=== PATIENT | male | born 1960 | race Caucasian/White ===

== ENCOUNTER 2022-03-07 07:10 | Inpatient (IN) | payer OTHER, SELFPAY ==
[2022-03-07] VITALS (25 sets, daily range): BP systolic 100–152; BP diastolic 64–94; PULSE 48–68; RESP 10–17; TEMP 36.4–36.5; O2SAT 97–100; BMI 24.6
--- NOTE | 2022-03-07 | ECHO_ITS ---
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 Strain analysis performed. Summary 1. Left ventricular chamber dimension is normal. 2. Left ventricular systolic function is mildly reduced, estimated at 40-45%. 3. The inferoposterior segment is severely hypodynamic. 4. Definity contrast used to improve visualization. 5. There is trace mitral valve regurgitation. Left Ventricle Left ventricular chamber dimension is normal. Left ventricular systolic function is mildly reduced, estimated at 40-45%. The left ventricular diastolic function is grade I diastolic dysfunction. Definity contrast used to improve visualization. The inferoposterior segment is severely hypodynamic. Right Ventricle Right ventricular chamber dimension is mildly enlarged. Left Atria Left atrial chamber dimension is normal. Right Atria Right atrial chamber dimension is normal. Aortic Valve The aortic valve is normal. Pulmonic Valve The pulmonic valve is normal. Mitral Valve The mitral valve has normal leaflets. There is trace mitral valve regurgitation. Tricuspid Valve The tricuspid valve leaflets are normal. Pericardium/Pleural The pericardium appears normal. Aorta The aortic root size at the sinus of Valsalva is normal. Left Ventricular Outflow Tract Name Value Normal LVOT Doppler LVOT Peak Gradient 1 mmHg LVOT Mean Gradient 0 mmHg LVOT VTI 10.40 cm LVOT VTI/AV VTI Ratio 0.70 Mitral Valve Name Value Normal MV Doppler MV Decel [place] 234.15 cm/s2 MV PHT 0 s MV Area (PHT) 3.24 cm2 4.00-5.00 MV Diastolic Function MV E Peak Velocity 54.88 cm/s MV A Peak Velocity 62.13 cm/s MV E/A 0.88 MV Decel Time 0 s MV Annular TDI MV E/e' (Septal) 8.69 <=8.00 MV E/e' (Lateral) 5
--- NOTE | 2022-03-07 07:11 | ECG_ITS ---
Measurements Intervals [place] Rate: 56 P: 1 [place]: 158 QRS: 66 QRSD: 89 T: 104 QT: 394 QTc: 382 Interpretive Statements SINUS BRADYCARDIA MARKED ST ELEVATION, CONSIDER INFERIOR INJURY [MARKED ST ELEVATION W/O NORMALLY INFLECTED T WAVE IN II/aVF] ACUTE INFERIOR NE ABNORMAL ECG NO PREVIOUS ECG AVAILABLE FOR COMPARISON Electronically Signed On 03-07-2022 14:08:25 CDT by Erasto Wyatt M.D.
--- NOTE | 2022-03-07 07:14 | ED.CHESTPAIN ---
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 EYES: Denies visual changes, redness, or discharge. ENT: Denies rhinorrhea, congestion, sore throat, or otalgia. CARDIOVASCULAR: has chest pain, no palpitations, or edema. RESPIRATORY: Denies cough but has dyspnea. GASTROINTESTINAL: Denies abdominal pain, nausea, vomiting, or diarrhea. GENITOURINARY: Denies dysuria or hematuria. SKIN: Denies rash or itching. MUSCULOSKELETAL: Denies back pain, joint pain, or myalgia. NEUROLOGIC: Denies headache, numbness, or weakness. PSYCHIATRIC: Denies anxiety or depression. Exam Narrative: APPEARANCE: Well appearing, no pain in distress, well-nourished. Head normocephalic atraumtaic. EYES: PERRLA/EOMI, conjunctivae very clear. NOSE: Normal no drainage EARS:TMS clear Diann Noriega, with good light reflex. THROAT: Pharynx clear, no exudate. NECK: Supple. No adenopathy, no masses. RESPIRATORY: Airway patent, repsirations nonlabored. Clear to auscultation bilaterally, no rales, rhonchi, wheezing. CARDIOVASCULAR: Regular rate and rhythm without murmurs rubs or gallops. ABDOMINAL: Soft, nontender, nondistended, no hepatosplenomegally MUSCULOSKELETAl: Moves all extremities. Strenght/ROM intact, No edema, No calf tenderness. NEURO: Alert. Cranial nerves II through XII intact. Good gait. Good coordination SKIN:: Warm, dry. Normal Color PSYCHIATRIC: Normal affect/mood, normal interaction with parents. Course Reevaluation(s) Reevaluation #1: let dr Roldan know again pt here and updated vitals history and exam and repeat ekg at 0724 Vital Signs Vital signs: Vital Signs Pulse Rate 59 L 03/07/22 07:09 Respiratory Rate 12 03/07/22 07:09 Blood Pressure 152/94 H 03/07/22 07:09 Pulse Oximetry 98 03/07/22 07:09 Oxygen Delivery Room Air 03/07/22 07:09 Pulse Rate 59 L 03/07/22 07:09 Respiratory Rate 12 03/07/22 07:09 Blood Pressure 152/94 H 03/07/22 07:09 Pulse Oximetry 98 03/07/22 07:09 Oxygen Delivery Room Air 03/07/22 07:09 MDM - Chest Pain Lab Data Result diagrams: 03/07/22 07:20 03/07/22 07:20 Labs: Lab Results 03/07/22 03/07/22 03/07/22 Range/Units 07:20 07:20 07:20 WBC Pending RBC Pending Hgb Pending Hct Pending MCV Pending MCH Pending MCHC Pending RDW Pending Plt Count Pending MPV Pending Immature Gran % (Auto) Pending Neut % (Auto) Pending Lymph % (Auto) Pending Pepin % (Auto) Pending Eos % (Auto) Pending Baso % (Auto) Pending Lymph # (Auto) Pending Pepin # (Auto) Pending Eos # (Auto) Pending Baso # (Auto) Pending Abs Immat Gran (auto) Pending Absolute Neuts (auto) Pending Absolute Nucleated RBC Pending Nucleated RBC % Pending PT Pending INR Pending APTT Pending Sodium Pending Potassium Pending Chloride Pending Carbon Dioxide Pending Anion Gap Pending BUN Pending Creatinine Pending Estim Creat Clear Calc Pending Estimated GFR Pending Glucose Pending Calcium Pending Total Bilirubin Pending AST Pendin
[2022-03-07] MEDS: ONDANSETRON INJ 4 MG/2 ML VIAL IV PUSH (07:21)
[2022-03-07] MEDS: MORPHINE SULFATE (*CRX) 2 MG/ML INJ IV PUSH (07:21)
[2022-03-07] MEDS: HEPARIN SODIUM 5,000 UNITS/ML VIAL 4000 UNITS IV PUSH (07:22)
[2022-03-07 07:25] LABS: Basophils Absolute Auto 0.1 K/mm3 (0.0-0.1); Basophils Percent Auto 0.8 % (0.2-1.2); Eosinophils Absolute Auto 0.4 K/mm3 (0-0.3); Hematocrit 46.7 % (42.0-52.0); Hemoglobin 15.4 g/dL (14.0-18.0); Immature Granulocyte Absolute 0.03 K/mm3 (0.00-0.031); Immature Granulocyte Percent A 0.3 % (0-0.5); Lymphocytes Absolute Auto 3.41 K/mm3 (0.9-3.2); Lymphocytes Percent Auto 32.6 % (18.3-44.2); Mean Corpuscular Hemoglobin 32.6 pg (26-34); Mean Corpuscular Volume 98.9 fl (80-100); Mean Platelet Volume 10.5 fl (7.4-10.4); Monocytes Absolute Auto 0.8 K/mm3 (0.1-0.6); Monocytes Percent Auto 7.7 % (2.6-8.5); Neutrophils Absolute Auto 5.7 K/mm3 (1.3-6.7); Neutrophils Percent Auto 54.6 % (45.5-73.1); Platelet Count Result 217 k/mm3 (150-375); Red Blood Count 4.72 M/mm3 (4.6-6.20); Red Cell Distribution Width 12.1 % (11.5-14.5); White Blood Count 10.5 K/mm3 (4.5-10.0)
[2022-03-07 07:36] LABS: Alanine Aminotransferase 15 U/L (6-50); Albumin Level 4.2 g/dL (3.5-5.1); Alkaline Phosphatase 104 U/L (38-126); Anion Gap 7 mmol/L (8-16); Aspartate Amino Transferase 26 U/L (17-59); Bilirubin,Total 0.6 mg/dL (0.2-1.3); Blood Urea Nitrogen 13 mg/dL (9-20); Calcium 8.7 mg/dL (8.4-10.2); Carbon Dioxide 27 mmol/L (22-30); Chloride 104 mmol/L (98-107); Cholesterol 278 mg/dL (0-200); Estimated CRCL calculation 83 ml/min; Estimated Glomerular Filt Rate > 60; Glucose 127 mg/dL (65-110); HDL Direct 31 mg/dL; Potassium 4.1 mmol/L (3.4-5.0); Sodium 138 mmol/L (137-145); Triglycerides 214 mg/dL (<150)
[2022-03-07 07:37] LABS: Partial Thromboplastin Time 25.9 SECONDS (22.3-36.8); Prothrombin Time 12.9 Seconds (11.1-14.7)
[2022-03-07 07:47] LABS: LDL Cholesterol Direct 181 mg/dL
[2022-03-07 08:08] LABS: Troponin I 0.071 ng/mL (0.000-0.034)
--- NOTE | 2022-03-07 08:21 | WPDCARDPROC ---
Cardiac Cath Procedure Note Date of procedure:: 03/07/22 Performing physician:: Ham Roldan MD Indication:: inferior wall ST-elevation TX Brief clinical history:: this is a 61-year-old patient without previous history of coronary artery disease. [place] and presents to the hospital by ambulance with chest pain and acute inferior ST-elevation TX Procedure Procedure performed:: emergency coronary angiography emergency PCI(LUIS) to the right coronary artery left ventriculography Sedation/Medication given:: no sedation case start time 7:36 a.m. case end time 8:03 a.m. Access site:: right femoral artery Estimated blood loss:: he 25 cc Procedure note:: patient was brought to the cardiac catheterization lab in the emergency setting. The right and left femoral triangles were prepared and draped in normal fashion. Anesthesia was given in the right groin with 1% lidocaine. Using the modified Seldinger right femoral artery was punctured and a 6 [place] vascular sheath was placed. After this I used a 6 [place] JR4 guiding catheter to engage and inject the right coronary artery. Following this PCI of right coronary artery was carried out as detailed below. Prior to PCI the patient was anticoagulated with a bolus and infusion of Angiomax. He also received 180 mg of oral Brilinta prior to intervention. He had received aspirin in the emergency department and as well as 4000 units of heparin. Following right coronary PCI used a 5 [place] FL4 to engage and inject the left coronary artery in multiple projections. After this a 5 [place] angled pigtail catheter was used to measure left-sided hemodynamics and to inject LV g in the our AO projection. Following this the case was terminated the sheath was sutured into position the patient was taken to the ICU for post TX/PCI recovery. 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 Findings:: Hemodynamics: Central aortic pressure is 138/78 left ventricle 138/6 end-diastolic 18 there was no gradient on pullback across the aortic valve. Left ventricle: The infero posterior segment is akinetic the remainder of the ventricle contracts well. The global ejection fraction is in 50% by visual estimation the left main coronary artery is nicely patent the left anterior descending is a moderate caliber artery extending down to the apex. The LAD has mild atherosclerotic luminal irregularities proximally there is no significant disease in the LAD. Circumflex is a medium caliber vessel giving rise to 1 significant marginal branch and another very small marginal. The circumflex system is smooth and angiographically normal. The right coronary artery is large caliber and dominant to the posterior circulation is 100% occluded proximally. Appearance is typical of an acute thrombotic occlusion. Intervention: The right coronary artery was wired using a 0.014 BMW coronary guidewire. Traversing the occlusion with the wire restore MJ 1 flow in the vessel. Following this the lesion was pre-dilated with a 2.5 x 20 mm PTCA balloon and then stented with a 3.5 x 26 mm [employer] drug-eluting stent with an excellent anatomical result. There was MJ 3 flow in the vessel following the procedure and no disruption dissection or distal embolization. Conclusion:: 1. Acute inferior wall ST-elevation TX with 100% occlusion of the right coronary proximally. 2. No significant left coronary disease 3. successful revascularization as detailed above 4. infero posterior akinesia global ejection fraction approximately 50% Ham Roldan MD [facility]
--- NOTE | 2022-03-07 08:22 | ADMGEN ---
This patient, Jose Trujillo, was admitted to Intensive Care Unit-7 at 0822. Patient/family oriented to hospital policies and general routines including ID bracelet, bed and alarms, visiting hours, pain management, procedures, bathroom and other care routines, personal items, smoking policy, room service/diet, and visiting hours. Information on how to activate the Rapid Response Team has been discussed. Patient/Family are encouraged to report perceived risks to care and to ask questions if they do not understand what they are told or what they should do.
--- NOTE | 2022-03-07 08:38 | PM.IMHP ---
H&P: HPI History of Present Illness Date/Time: 03/07/22 08:38 Chief Complaint: chest pain Narrative: this is a 61-year-old man without previous knowledge of coronary artery disease or really significant medical problems. 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 patient is being seen briefly as he is being prepared for emergency angiography in the cardiac catheterization lab. Denies any history of hypertension diabetes or dyslipidemia. Patient states that he just lost his brother within the last couple of weeks of myocardial infarction. Review of Systems Review of Systems: ROS unobtainable: Yes unobtainable due to medical condition Meds Home Medications and Allergies Home Medications Medication Instructions Recorded Confirmed Type No Home Medications 03/07/22 03/07/22 History Allergies Allergy/AdvReac Type Severity Reaction Status Date / Time No Known Allergies Allergy Verified 03/07/22 08:40 Vital Signs Vital Signs - 24 hr 03/07/22 07:09 Pulse Rate 59 L Respiratory Rate 12 Blood Pressure 152/94 H Pulse Oximetry 98 Oxygen Delivery Room Air Exam Const: General: uncomfortable Other: Well-developed well-nourished 61-year-old gentleman remarkably calm given the circumstances HENMT: Mouth: Yes moist mucous membranes Eyes: Sclera: sclerae normal Neck: Neck: supple and no JVD Other: carotid pulses intact bilaterally Resp: Effort & Inspection: normal respiratory effort Auscultation: clear to auscultation bilaterally Cardio: Rate: regular rate and bradycardic Rhythm: regular rhythm Other: no murmur no gallop GI: GI Palp: Yes Soft to palpation Auscultation: normal bowel sounds Skin: General skin exam: normal color Neuro: Other: alert and oriented, cognitively intact Extrem: General: normal to inspection H&P: Results Labs Labs: Short CBC 03/07/22 Range/Units 07:20 WBC 10.5 H (4.5-10.0) K/mm3 Hgb 15.4 (14.0-18.0) g/dL Hct 46.7 (42.0-52.0) % Plt Count 217 (150-375) k/mm3 BMP 03/07/22 07:20 Sodium 138 Potassium 4.1 Chloride 104 Carbon Dioxide 27 BUN 13 Creatinine 0.90 Glucose 127 H Calcium 8.7 Cardiac Enzymes 03/07/22 Range/Units 07:20 Troponin I 0.071 H* (0.000-0.034) ng/mL Liver Function 03/07/22 Range/Units 07:20 Total Bilirubin 0.6 (0.2-1.3) mg/dL AST 26 (17-59) U/L ALT 15 (6-50) U/L Alkaline Phosphatase 104 (38-126) U/L Albumin 4.2 (3.5-5.1) g/dL Assessment and Plan Assessment and plan (1) Acute inferior myocardial infarction: Code(s): I21.19 - ST elevation (STEMI) myocardial infarction involving other coronary artery of inferior wall Status: Acute Plan 61-year-old man presenting with chest pain and acute inferior wall ST-elevation VT. 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 Ham Roldan MD [facility]
--- NOTE | 2022-03-07 08:41 | WPDCNINT ---
Assessment and Plan Assessment and plan (1) Acute inferior myocardial infarction: Code(s): I21.19 - ST elevation (STEMI) myocardial infarction involving other coronary artery of inferior wall Status: Acute Assessment and Plan: Acute inferior wall ST-elevation [place] with 100% occlusion of the right coronary proximally. Status post PCI and stent placement in RCA ICU telemetry monitoring IV fluids for renal protection Continue aspirin Brilinta statin beta-tamanna and ARB Check echocardiogram Check HbA1c and TSH (2) Dyslipidemia: Code(s): E78.5 - Hyperlipidemia, unspecified Status: Acute Assessment and Plan: Patient will be started on statin (3) Tobacco abuse: Code(s): Z72.0 - Tobacco use Status: Acute Assessment and Plan: I discussed in detail with patient the risks of smoking and benefits of cessation. I counseled and encouraged him to quit. Patient does not appears to be motivated in quitting at this time. Additional Plan DVT prophylaxis -SCDs at this time as patient received anticoagulation with a cardiac catheterization. 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 Patient states that chest pain initially started last night after he ate a roast beef sandwich he felt that it was heartburn. He took some Pepto-Bismol and felt better. This morning around 6:00 a.m. the symptoms reoccurred. He states the pain was heartburn in quality, in the middle of chest, 8/10 severe and did not radiate anywhere else. No palpitations dizziness lightheadedness shortness of breath associated with it. He did had some sweating. Prior to this patient denies any complaints and was feeling fine and at baseline. All other systems were reviewed and were negative In ED patient was found to be having STEMI and was taken to cardiac catheterization lab where he underwent PCI of his RCA with stent placement. He also had episode of sinus bradycardia and required atropine. Patient now admitted to ICU for further evaluation management. He at this time denies any complaints and feels fine. 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 Cardiac: RRR. Normal S1 S2. No murmurs Circulation: Pedal pulses are intact and symmetrical. Abdomen: Normal bowel sounds.. Soft. NT. ND. Extremities: No clubbing, cyanosis or edema. Warm arterial sheath in right groin with no swelling or hematoma around it : Hannah in place Neurologic: Follows commands. Moves all 4 extremities PERRL Skin: No Rash Results Labs CBC & Chem 7: 03/07/22 07:20 03/07/22 0
[2022-03-07 10:03] LABS: Hemoglobin A1C 5.5 % (<5.7)
[2022-03-07] MEDS: METOPROLOL SUCCINATE EXT REL 25 MG TABCR PO (10:26)
[2022-03-07] MEDS: ROSUVASTATIN 10 MG TABLET 20 MG PO (10:27)
[2022-03-07] MEDS: LOSARTAN POTASSIUM 25 MG TABLET PO (10:27)
[2022-03-07] MEDS: PERFLUTREN LIPID MICROSPHERES 1.5 ML VIAL DILUTED TO 10 ML TOTAL VOLUME IV PUSH (10:32)
--- NOTE | 2022-03-07 10:32 | IVDEFINITY ---
Prior to administration of IV Definity the patient was educated on the risks and benefits of the imaging enhancing agent including potential adverse side effects. The patient verbalized understanding. Allergies were verified. No exclusion criteria were identified and at least one of the following inclusion criteria were met: 1) physician request, 2) patient technically difficult to image (per the [place] Society of Echocardiography guidelines of two or more segments not discernable within the apical view), or 3) questionable left ventricular function. ?
[2022-03-07] MEDS: SODIUM CHLORIDE 0.9% IV 1,000 ML 125 ML IV CONT (17:58)
[2022-03-07] MEDS: TICAGRELOR 90 MG TABLET PO (20:23)
[2022-03-08] VITALS (14 sets, daily range): BP systolic 95–121; BP diastolic 60–82; PULSE 46–87; RESP 12–18; TEMP 36.2–37; O2SAT 95–100
[2022-03-08 04:28] LABS: Hematocrit 42.2 % (42.0-52.0); Mean Corpuscular HGB Conc 33.2 g/dl (32-36); Mean Corpuscular Hemoglobin 32.2 pg (26-34); Mean Platelet Volume 10.6 fl (7.4-10.4); Platelet Count Result 211 k/mm3 (150-375); Red Blood Count 4.35 M/mm3 (4.6-6.20); Red Cell Distribution Width 12.2 % (11.5-14.5); White Blood Count 9.9 K/mm3 (4.5-10.0)
[2022-03-08 04:42] LABS: Alanine Aminotransferase 19 U/L (6-50); Albumin Level 3.7 g/dL (3.5-5.1); Alkaline Phosphatase 95 U/L (38-126); Anion Gap 6 mmol/L (8-16); Aspartate Amino Transferase 83 U/L (17-59); Bilirubin,Total 0.7 mg/dL (0.2-1.3); Blood Urea Nitrogen 10 mg/dL (9-20); Calcium 7.8 mg/dL (8.4-10.2); Carbon Dioxide 26 mmol/L (22-30); Chloride 105 mmol/L (98-107); Estimated CRCL calculation 105 ml/min; Estimated Glomerular Filt Rate > 60; Glucose 99 mg/dL (65-110); Magnesium 1.9 mg/dL (1.6-2.3); Phosphorus 3.4 mg/dL (2.5-4.5); Potassium 3.9 mmol/L (3.4-5.0); Sodium 137 mmol/L (137-145)
--- NOTE | 2022-03-08 05:11 | ECG_ITS ---
Measurements Intervals [place] Rate: 45 P: 37 [place]: 176 QRS: 26 QRSD: 78 T: -67 QT: 463 QTc: 401 Interpretive Statements SINUS BRADYCARDIA T-WAVE ABNORMALITY, CONSIDER ISCHEMIA Electronically Signed On 03-08-2022 11:45:16 CDT by Sunil Solorio M.D.
[2022-03-08] MEDS: CALCIUM GLUC 2,000 MG/NS 100ML 2,000 MG/100 ML BAG 100 MG IVPB (08:54)
[2022-03-08] MEDS: ASPIRIN 81 MG CHEWABLE TABLET PO (08:57)
[2022-03-08] MEDS: ROSUVASTATIN 10 MG TABLET 20 MG PO (08:57)
[2022-03-08] MEDS: LOSARTAN POTASSIUM 25 MG TABLET PO (08:57)
[2022-03-08] MEDS: TICAGRELOR 90 MG TABLET PO ×2 (08:57→21:07)
--- NOTE | 2022-03-08 09:30 | WPDINTPN ---
Progress Note: A&P Assessment and Plan (1) Acute inferior myocardial infarction: Code(s): I21.19 - ST elevation (STEMI) myocardial infarction involving other coronary artery of inferior wall Status: Acute Assessment and Plan: Acute inferior wall ST-elevation [place] with 100% occlusion of the right coronary proximally. Status post PCI and LUIS x1 to RCA, EF of approximately 50% Patient has been bradycardic overnight, Patient did receive post cardiac catheterization IV fluids for renal protection which are currently off Continue aspirin, Brilinta, statin, beta-tamanna and ARB 03/07: Echocardiogram showed EF of 40-45%, grade 1 diastolic dysfunction, inferoposterior segment is severely hypodynamic, trace mitral valve regurg (2) Dyslipidemia: Code(s): E78.5 - Hyperlipidemia, unspecified Status: Acute Assessment and Plan: Continue rosuvastatin (3) Tobacco abuse: Code(s): Z72.0 - Tobacco use Status: Acute Assessment and Plan: I discussed in detail with patient the risks of smoking and benefits of cessation. I counseled and encouraged him to quit. Patient does not appears to be motivated in quitting at this time. (4) Bradycardia: Code(s): R00.1 - Bradycardia, unspecified Status: Acute Assessment and Plan: Patient is being bradycardic with on using 50s. Overnight he did have some episodes where his heart rate was in the 20s as per night bedside RN. -could be related to metoprolol, also inferior LA -continue to monitor closely -will discuss with Cardiology Plan Replace calcium Additional Plan DVT prophylaxis -SCDs at this time as patient received anticoagulation with a cardiac catheterization. Nutrition -heart healthy Code Status - Full Code Critical care time spent: 32 minutes Subjective Date/time seen: 03/08/22 09:30 Interval history: Reason for consult, ST-elevation LA status post PTCA/PCI with LUIS x1 to RCA, EF was 50%. Cardiac catheterization was done on 03/07/2022 03/08/2022: Patient seen and examined the ICU, is awake, alert, oriented, denies any chest pain, shortness of breath, diaphoresis, abdominal pain, nausea, vomiting. Patient has been bradycardic with a few episodes of dipping in the 20s in coming right back up. But his heart rate has remained in the 40s and 50s overnight. Urine output has been adequate, patient is hemodynamically stable, afebrile Review of Systems Review of Systems: All systems reviewed & are unremarkable except as noted in HPI and below (HPI) Exam Narrative: General: Pt is alert awake and in NAD HEENT: Pupils equal and reactive, sclerae is clear Lungs/Chest: Trachea central Clear BS B/L, No crackles or wheezing. Cardiac: RRR. Normal S1 S2. No murmurs Abdomen: Normal bowel sounds.. Soft. NT. ND. Extremities: No clubbing, cyanosis or edema. Right groin site with no evidence of hematoma or ecchymosis, palpable pedal pulses Neurologic: Follows commands. Moves all 4 extremities PERRL, is awake, alert and oriented Skin: No skin lesions or rash noted Objective Data Vital Signs Vital Signs: Vital Signs - 24 hr 03/07/22 10:26 03/07/22 11:00 03/07/22 11:07 Temperature Pulse Rate 55 L 57 L Pulse Rate [Right Pedal (Dorsalis Pedis) Doppler] 57 L 57 L Respiratory Rate 16 Blood Pressure 115/88 Pulse Oximetry 98 Oxygen Delivery 03/07/22 10:00 03/07/22 10:30 03/07/22 10:00 Temperature Pulse Rate 56 L 57 L 56 L Pulse Rate [Right Pedal (Dorsalis Pedis) Doppler] 62 62 Respiratory Rate 15 14 Blood Pressure 118/85 117/83 Pulse Oximetry 98 98 Oxygen Delivery 03/07/22 10:00 03/07/22 11:30 03/07/22 13:00 Temperature Pulse Rate 56 L 54 L 55 L Pulse Rate [Right Pedal (Dorsalis Pedis) Doppler] 54 L 55 L Respiratory Rate 14 17 12 Blood Pressure 118/89 111/79 117/73 Pulse Oximetry 98 100 99 Oxygen Delivery 03/07/22 12:00 03/07/22 11:45 03/07/22 12:00 Temperature Pulse Rate 56
--- NOTE | 2022-03-08 12:25 | PM.PNCARD ---
Progress Note: A&P Assessment and Plan (1) Acute inferior myocardial infarction: Code(s): I21.19 - ST elevation (STEMI) myocardial infarction involving other coronary artery of inferior wall <BLAINE Campbell - Last Filed: 03/08/22 15:11> Status: Acute <BLAINE Campbell - Last Filed: 03/08/22 15:11> Assessment and Plan: Presentation with chest pain and evidence of acute inferior wall [place]. He was taken to the helper animal laboratory emergently and was found to have a 100% occlusion of the RCA. This was treated with placement of a 3.5 x 26 mm [employer] drug-eluting stent. Continue DAPT with ASA, brilinta for one year without interruption Continue statin Continue metoprolol, losartan Aggressive risk factor modification for CAD Immediate and indefinite smoking cessation encouraged. OK to transfer to IMU level of care today. <BLAINE Campbell - Last Filed: 03/08/22 15:11> Additional Plan ATTENDING ADDENDUM: I agree with the above documentation and plan of care as outlined. <Erasto Wyatt MD - Last Filed: 03/08/22 15:21> Subjective Date/time seen: 03/08/22 12:25 Cardiology follow up for STEMI No acute events overnight. No recurrence of chest pain. No significant arrhythmias on telemetry, rare PVC's. Feeling well overall and does not have any complaints. <BLAINE Campbell - Last Filed: 03/08/22 15:11> Review of Systems Review of Systems: All systems reviewed & are unremarkable except as noted in HPI and below <BLAINE Campbell - Last Filed: 03/08/22 15:11> Exam Const: General: uncomfortable <BLAINE Campbell - Last Filed: 03/08/22 15:11> Other: Well-developed well-nourished 61-year-old gentleman remarkably calm given the circumstances <BLAINE Campbell - Last Filed: 03/08/22 15:11> HENMT: Mouth: Yes moist mucous membranes <BLAINE Campbell - Last Filed: 03/08/22 15:11> Eyes: Sclera: sclerae normal <BLAINE Campbell - Last Filed: 03/08/22 15:11> Neck: Neck: supple and no JVD <ACOSTA CampbellC - Last Filed: 03/08/22 15:11> Other: carotid pulses intact bilaterally <ACOSTA CampbellC - Last Filed: 03/08/22 15:11> Resp: Effort & Inspection: normal respiratory effort <ACOSTA CampbellC - Last Filed: 03/08/22 15:11> Auscultation: clear to auscultation bilaterally <ACOSTA Campbell - Last Filed: 03/08/22 15:11> Cardio: Rate: regular rate and bradycardic <ACOSTA CampbellC - Last Filed: 03/08/22 15:11> Rhythm: regular rhythm <ACOSTA Campbell - Last Filed: 03/08/22 15:11> Other: no murmur no gallop <ACOSTA CampbellC - Last Filed: 03/08/22 15:11> GI: Auscultation: normal bowel sounds <BLAINE Campbell - Last Filed: 03/08/22 15:11> Skin: General skin exam: normal color <BLAINE Campbell - Last Filed: 03/08/22 15:11> Other: R groin arterial insertion site free from bleeding, hematoma, bruit. <BLAINE Campbell - Last Filed: 03/08/22 15:11> Neuro: Other: alert and oriented, cognitively intact <BLAINE Campbell - Last Filed: 03/08/22 15:11> Extrem: General: normal to inspection <BLAINE Campbell - Last Filed: 03/08/22 15:11> Objective Data Vital Signs Vital Signs: Vital Signs - 24 hr 03/07/22 13:00 03/07/22 12:30 03/07/22 14:00 Temperature Pulse Rate 55 L 49 L 48 L Pulse Rate [Right Pedal (Dorsalis Pedis) Doppler] 55 L 49 L 48 L Respiratory Rate 12 13 13 Blood Pressure 117/73 117/79 107/74 Pulse Oximetry 99 98 97 Oxygen Delivery 03/07/22 15:00 03/07/22 14:00 03/07/22 14:00 Temperature Pulse Rate 50 L 53 L Pulse Rate [Right Pedal (Dorsalis Pedis) Doppler] 50 L 53 L Respiratory Rate 12 12 Blood Pressure 104/75 100/75 Pulse Oximetry 98 97 Oxygen Delivery 03/07/22 16:00 03/07/22 17:00 03/07/22 14:00 Temperature 36.4 C Pulse Rate 55 L 51 L 53 L Pulse Rate [Right Pedal (Dorsalis Pedis) Doppler] 55 L 55 L Respirat
--- NOTE | 2022-03-08 16:29 | PC.NURSE ---
This patient, Jose Trujillo, was transferred to [[id number] ] on 03/08/22 at 1630. Personal belongings sent with patient. Report given to [Aydee ]. Appropriate documentation sent with patient.
[2022-03-09] VITALS (10 sets, daily range): BP systolic 87–106; BP diastolic 59–92; PULSE 60–73; RESP 14–20; TEMP 35.5–36.5; O2SAT 93–98
[2022-03-09 05:23] LABS: Hematocrit 45.5 % (42.0-52.0); Hemoglobin 15.5 g/dL (14.0-18.0); Mean Corpuscular HGB Conc 34.1 g/dl (32-36); Mean Corpuscular Hemoglobin 32.8 pg (26-34); Mean Corpuscular Volume 96.4 fl (80-100); Mean Platelet Volume 10.7 fl (7.4-10.4); Platelet Count Result 236 k/mm3 (150-375); Red Blood Count 4.72 M/mm3 (4.6-6.20); White Blood Count 9.2 K/mm3 (4.5-10.0)
[2022-03-09 05:46] LABS: Alanine Aminotransferase 17 U/L (6-50); Albumin Level 4.2 g/dL (3.5-5.1); Alkaline Phosphatase 103 U/L (38-126); Anion Gap 9 mmol/L (8-16); Aspartate Amino Transferase 57 U/L (17-59); Bilirubin,Total 0.8 mg/dL (0.2-1.3); Blood Urea Nitrogen 11 mg/dL (9-20); Calcium 8.5 mg/dL (8.4-10.2); Carbon Dioxide 27 mmol/L (22-30); Chloride 102 mmol/L (98-107); Estimated CRCL calculation 92 ml/min; Estimated Glomerular Filt Rate > 60; Glucose 86 mg/dL (65-110); Magnesium 1.9 mg/dL (1.6-2.3); Potassium 3.5 mmol/L (3.4-5.0); Sodium 138 mmol/L (137-145)
[2022-03-09] MEDS: ROSUVASTATIN 10 MG TABLET 20 MG PO (09:20)
[2022-03-09] MEDS: ASPIRIN 81 MG CHEWABLE TABLET PO (09:20)
[2022-03-09] MEDS: TICAGRELOR 90 MG TABLET PO (09:21)
[2022-03-09] MEDS: LOSARTAN POTASSIUM 25 MG TABLET PO (09:21)
--- NOTE | 2022-03-09 10:47 | PM.DS ---
DS: Admitting Diagnosis Discharge Date 03/09/[address]-elevation [place] DS: Discharge Diagnosis Discharge Diagnosis (1) Acute inferior myocardial infarction: Code(s): I21.19 - ST elevation (STEMI) myocardial infarction involving other coronary artery of inferior wall Status: Acute DS: Summary Hospital Course Reason for hospitalization: Inferior wall ST-elevation [place] Hospital Course: This is a 61-year-old man without prior history of coronary disease he does have a history of cigarette smoking and entered the hospital with chest pain and evidence of acute inferior wall ST-elevation [place]. 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 He was taken immediately to the cardiac catheterization lab where angiographically was found to have no significant left coronary disease but he did have a proximal acute occlusion of his RCA. He underwent emergency intervention delivering a 3.5 x 26 mm [employer] drug-eluting stent to the target lesion with an excellent anatomical result hoahaoism of MJ 3 flow in the vessel. There was no disruption dissection or distal embolization. The patient had an uncomplicated post GA course and today appears to be a good candidate for discharge. The patient has been bradycardic enough since admission were his beta-tamanna despite being ordered has not been administered. Other than this there have been no hemodynamic or arrhythmia concerns. He will be getting a ride from a friend/neighbor returning to [place] where he resides. He already has appointment scheduled for cardiology follow-up in his hometown. Time spent discussing smoking cessation with patient: more than 10 minutes Status at Discharge Functional status at discharge: independent ambulation Overall status at discharge: patient is progressing back to baseline Time Spent with Patient Time attestation: Total time spent providing and/or coordinating discharge services: Time spent: Less than 30 minutes Exam Const: General: comfortable and no acute distress HENMT: Mouth: Yes moist mucous membranes Eyes: Sclera: sclerae normal Pupils: Equal, round and reactive pupils present Neck: Neck: supple and no JVD Other: Normal carotid pulses no bruits are audible Resp: Effort & Inspection: normal respiratory effort Auscultation: clear to auscultation bilaterally Cardio: Rate: regular rate Rhythm: regular rhythm GI: GI Palp: Yes Soft to palpation Auscultation: normal bowel sounds Skin: General skin exam: normal color Neuro: Other: Alert and oriented normal cognition Extrem: Other: No normal pulses, no edema, femoral puncture site is unremarkable DS: Data Data Completed and Pending Labs on day of discharge: Labs from last 24 hours 03/09/22 03/09/22 04:36 04:36 WBC 9.2 RBC 4.72 Hgb 15.5 Hct 45.5 MCV 96.4 MCH 32.8 MCHC 34.1 RDW 12.0 Plt Count 236 MPV 10.7 H Sodium 138 Potassium 3.5 Chloride 102 Carbon Dioxide 27 Anion Gap 9 BUN 11 Creatinine 0.80 Estim Creat Clear Calc 92 Estimated GFR > 60 Glucose 86 Calcium 8.5 Phosphorus 4.0 Magnesium 1.9 Total Bilirubin 0.8 AST 57 ALT 17 Alkaline Phosphatase 103 Total Protein 8.0 Albumin 4.2 Discharge Plan Discharge Attending physician on discharge: Ham Roldan Consulting providers: Diego Hale Discharging Clinician: Ham Roldan Anticipated Discharge Date/Time: 03/09/22 10:52 Patient Disposition: Home, Self-Care Activity: as tolerated Diet: heart healthy Discharge Instructions: [facility] [address]
== END 2022-03-09 13:28 | disposition home or self-care (01) | DRG 247 ==
LOC: ANHED 07:32 → ANHICU 08:27 → ANHIMU 03-08 16:28
PROVIDERS: Internal Medicine; Admitting Provider Specialist; Emergency Provider Emergency Medicine; Visit Provider Specialist
PROC: 4A023N7 Measurement of Cardiac Sampling and Pressure, Left Heart, Percutaneous Approach (ICD-10-PCS; CPT 93452; principal; 2022-03-07 07:15)
PROC: 027034Z Dilation of Coronary Artery, One Artery with Drug-eluting Intraluminal Device, Percutaneous Approach (ICD-10-PCS; 2022-03-07 07:15)
DX: I21.11 ST elevation (STEMI) myocardial infarction involving right coronary artery (principal); E78.5 Hyperlipidemia, unspecified; R00.1 Bradycardia, unspecified; Z87.891 Personal history of nicotine dependence
CPT/HCPCS: 36415; 80053; 80061; 83036; 83735; 84100; 84439; 84443; 84484; 85025; 85027; 85610; 85730; 86850; 86900; 86901; 93005; 93458; 99285; A9270; C1725; C1769; C1874; C1887; C1894; C8929; C9606; J0461; J0583; J0610; J1644; J2250; J2270; J2405; J3010; J7030; J7040; Q9957